=== PATIENT | female | born 1950 | race Caucasian/White ===

== ENCOUNTER → 2019-11-01 | Outpatient (CLI) | payer MEDICARE ==
[~2019-11-01] MED LIST: ASPIRIN CHEWABL81 MG PO; AVPAK AZITHROM250 MG PO; CYCLOBENZAPRINE5 M3 PO; DOXYCYCLINE100 M3 PO; EFFEXOR XR37.5 M1 PO; ENALAPRIL MALE2.5 MG PO; Estrace1 MG PO; FLOVENT DISKU250 MCG INH; FLOVENT HFA10.6 GM IH; LIPITOR10 MG PO; LISINOPRIL10 M1 PO; MOBIC15 MG PO; MONTELUKAST SOD10 MG PO; MUCINEX1200 M1 PO; OMEPRAZOLE20 M2 PO; PREDNISONE10 MG PO; PREDNISONE20 M1 PO; REFRESH TEARS15 ML OP; ROBAXIN-750750 MG PO; SYNTHROID,LEVO75 MCG PO; VITAMIN D350000 UNIT PO; WOMEN MULTIVIT1 EACH PO; ZYRTEC10 M3 PO
[2019-11-01 12:10] LABS: BASO # 0.1 10*3/uL (0.0-0.1); EOS # 0.2 10*3/uL (0.0-0.4); EOS % 2.5 % (1.0-4.0); HEMATOCRIT 39.8 % (37.0-47.0); HEMOGLOBIN 13.1 g/dl (12.0-16.0); MEAN CELL VOLUME 88.6 fl (81.0-99.0); MEAN CORPUSCULAR HGB 29.2 pg (27.0-31.0); MEAN CORPUSCULAR HGB CONC 32.9 g/dl (33.0-37.0); MEAN PLATELET VOLUME 10.9 fl (9.6-12.3); MONO # 0.5 10*3/uL (0.1-1.0); MONO % 5.7 % (3.0-9.0); NEUT # 5.9 10*3/uL (2.3-7.9); NEUT % 67.7 % (47.0-73.0); PLATELET COUNT AUTOMATED 252 10*3/uL (130-400); RED BLOOD COUNT 4.49 10*6/uL (4.10-5.10); RED CELL DISTRI WIDTH 12.1 % (0-14.5); WHITE BLOOD COUNT 8.7 10*3/uL (4.8-10.8)
[2019-11-01 12:41] LABS: CHLORIDE 109 mmol/L (98-107); POTASSIUM 3.8 mmol/L (3.5-5.1); SODIUM 139 mmol/L (136-145)
[2019-11-01 12:56] LABS: ALBUMIN 3.7 gm/dl (3.1-4.5); ALKALINE PHOSPHATASE 109 U/L (45-117); BUN 13 mg/dl (7-24); CREATININE 0.82 mg/dL (0.55-1.02); FREE T4 0.81 ng/dl (0.76-1.46); LIPASE 106 U/L (73-393); SGOT/AST 15 IU/L (3-35); SGPT/ALT 25 U/L (12-78)
== END | disposition home or self-care (01) ==
LOC: LAB 11:29
PROVIDERS: Family Medicine
DX: R19.8 Other specified symptoms and signs involving the digestive system and abdomen (principal); E03.9 Hypothyroidism, unspecified